=== PATIENT | male | born 1990 | race Caucasian/White ===

== ENCOUNTER 2017-10-04 00:38 | Emergency (ER) | payer SELFPAY ==
[~2017-10-04] VITALS: Ht 182.9 cm; Wt 87.1 kg
[2017-10-04 00:44] VITALS: TEMP 36.6; Ht 182.9 cm; Wt 87.1 kg
--- NOTE | 2017-10-04 01:04 | EMERGENCY ROOM VISIT NOTE ---
History Report prepared by Sim: Arjun Parnell Under the Supervision of: Dr. Darwin Garcia M.D. First contact with patient: 00:52 Chief Complaint: OTHER COMPLAINT Stated Complaint: LOSS OF FOCUS, HEADACHE History of Present Illness The patient is a 27 year old male who presents to the Emergency Room with complaints of persistent nasal congestion since yesterday. The patient states that he developed a stuffy nose yesterday. Per mother, the patient was given two Mucinex tablets and Afrin this evening. Per spouse, the patient has a bump on his head. He notes that he has been having intermittent headaches several times a week for the past 1.5 months. He has a history of sinus infections. 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 He notes that he can read the information, though he is having a difficult time focusing. He notes that he is sleeping as normal and has a normal appetite. He denies any sore throat or ear pain. He denies any underlying medical problems. He denies any back pain, abdominal pain, chest pain , or shortness of breath. He does not follow up with a PCP. He has a history of depression. He notes that he takes vitamins. He denies any alcohol use. Source of History: patient, parent, spouse/significant other Onset: since yesterday Position: nose Quality: other (congestion) Timing: other (persistent) Associated Symptoms: + headache, No sorethroat, No chest pain, No SOB, No abdominal pain, No back pain Note: He notes stuffy nose and inability to focus. He denies any ear pain. Review of Systems See HPI for pertinent positives & negatives. A total of 10 systems reviewed and were otherwise negative. Past Medical & Surgical Medical Problems: (1) Depression (2) Stomach problems Family History Diabetes mellitus FH: lung disease FHx: cancer FHx: heart disease Hypertension Social History Smoking Status: Never Smoker Smokeless Tobacco Use: No Alcohol Use: occasionally Marital Status: Housing Status: lives with significant other Occupation Status: unemployed, student Current/Historical Medications Scheduled Azithromycin (Zithromax Z-Dennis), 1 PKT PO UD Fish Oil ([place]-3), 1 CAP PO DAILY Methylprednisolone (Medrol Dosepak), 1 PKT PO UD Multivitamin (Multivitamin), 1 TAB PO DAILY Allergies Coded Allergies: Chlorpheniramine (Verified Allergy, Severe, GI SYMPTOMS, 10/04/17) Pseudoephedrine (Verified Allergy, Severe, GI SYMPTOMS, 10/04/17) Physical Exam Vital Signs Date Time Temp Pulse Resp B/P (MAP) Pulse Ox O2 Delivery O2 Flow Rate FiO2 10/04/17 02:38 80 16 121/79 98 10/04/17 00:44 36.6 81 16 121/70 97 Room Air Physical Exam GENERAL: Patient is anxious-appearing and in no acute distress. EYES: No scleral icterus, unremarkable pupils. ENT: Mucous membranes moist, nasal congestion in right nares. NECK: No masses appreciated, no meningismus, trachea is midline. RESPIRATORY: No dyspnea. Clear to auscultation and equal bilaterally. No wheeze , no rhonchi. CARDIOVASCULAR: Regular rate and rhythm. No murmurs, rubs, gallops appreciated. GASTROINTESTINAL: Abdomen soft, nontender, no peritonitis. Bowel sounds positive. No masses appreciated. BACK: No midline tenderness, no CVA tenderness EXTREMITIES: Normal motion all extremities, no cyanosis, no edema. NEUROLOGIC: Alert and oriented, no acute motor or sensory deficits, no focal weakness, cranial nerves grossly intact. SKIN: No rash, no jaundice, no diaphoresis. Medical Decision & Procedures ER Provider Diagnostic Interpretation: Radiology results and stated below per my review and radiologist interpretation: CT HEAD: No acute intracranial hemorrhage. No evidence of intracranial mass, extra-axial fluid collection, or acute territorial infarct. Visualized paraspinal sinuses and mastoid air cells are clear. Radiologist: Darwin Ortiz MD Study ready at 01:30 and initial results transmitted at 02:02 Laboratory Results 10/04/17 01:10 Red Blood Count 4.60, Mean Corpuscular Volume 90.9, Mean Corpuscular Hemoglobin 32.6, Mean Corpuscular Hemoglobin Concent 35.9, Mean Platelet Volume 10.2, Neutrophils (%) (Auto) 52.9, Lymphocytes (%) (Auto) 31.5, Monocytes (%) (Auto) 11.3, Eosinophils (%) (Auto) 3.6, Basophils (%) (Auto) 0.4, Neutrophils # (Auto ) 4.80, Lymphocytes # (Auto) 2.86, Monocytes # (Auto) 1.03, Eosinophils # (Auto ) 0.33, Basophils # (Auto) 0.04 10/04/17 01:10 Test 10/04/17 01:10 White Blood Count 9.09 K/uL (4.8-10.8) Red Blood Count 4.60 M/uL (4.7-6.1) Hemoglobin 15.0 g/dL (14.0-18.0) Hematocrit 41.8 % (42-52) Mean Corpuscular Volume 90.9 fL (80-100) Mean Corpuscular Hemoglobin 32.6 pg (25-34) Mean Corpuscular Hemoglobin Concent 35.9 g/dl (32-36) Platelet Count 230 K/uL (130-400) Mean Platelet Volume 10.2 fL (7.4-10.4) Neutrophils (%) (Auto) 52.9 % Lymphocytes (%) (Auto) 31.5 % Monocytes (%) (Auto) 11.3 % Eosinophils (%) (Auto) 3.6 % Basophils (%) (Auto) 0.4 % Neutrophils # (Auto) 4.80 K/uL (1.4-6.5) Lymphocytes # (Auto) 2.86 K/uL (1.2-3.4) Monocytes # (Auto) 1.03 K/uL (0.11-0.59) Eosinophils # (Auto) 0.33 K/uL (0-0.5) Basophils # (Auto) 0.04 K/uL (0-0.2) RDW Standard Deviation 41.3 fL (36.4-46.3) RDW Coefficient of Variation 12.4 % (11.5-14.5) Immature Granulocyte % (Auto) 0.3 % Immature Granulocyte # (Auto) 0.03 K/uL (0.00-0.02) Anion Gap 5.0 mmol/L (3-11) Est Creatinine Clear Calc Drug Dose 121.5 ml/min Estimated GFR () 117.9 Estimated GFR (Non- 101.7 BUN/Creatinine Ratio 15.9 (10-20) Calcium Level 9.0 mg/dl (8.5-10.1) Total Bilirubin 0.3 mg/dl (0.2-1) Aspartate Amino Transf (AST/SGOT) 19 U/L (15-37) Alanine Aminotransferase (ALT/SGPT) 40 U/L (12-78) Alkaline Phosphatase 103 U/L (45-117) Total Protein 7.2 gm/dl (6.4-8.2) Albumin 3.9 gm/dl (3.4-5.0) Globulin 3.3 gm/dl (2.5-4.0) Albumin/Globulin Ratio 1.2 (0.9-2) Thyroid Stimulating Hormone (TSH) 5.480 uIu/ml (0.300-4.500) Lyme Disease IgG Antibody NEG (NEG) Lyme Disease IgM Antibody NEG (NEG) Laboratory results as reviewed by me. Medications Administered Medications (Trade) Dose Ordered Sig/Leslie Route Start Time Stop Time Status Last Admin Dose Admin Azithromycin (Zithromax Tab) 500 mg NOW STAT PO 10/04/17 02:27 10/04/17 02:29 DC 10/04/17 02:35 500 MG Prednisone (PredniSONE TAB) 60 mg NOW STAT PO 10/04/17 02:27 10/04/17 02:29 DC 10/04/17 02:34 60 MG ED Course 0054: The patient was evaluated in room B9. A complete history and physical exam was performed. 0220: I reassessed the patient at this time. I discussed the results and treatment plan with the patient. I answered all pertaining questions that he had. He expressed understanding and verbalized agreement. The patient will be discharged home. Medical Decision 27 yr old male arrives for evaluation of fatigue for the last 1.5 months associated with periodic headaches and difficulty concentrating. Currently asymptomatic other then developing right maxillary sinus infection. Labs with mild TSH elevation which will need further work-up evaluation, normal CT head, no reason to need MRI/CTA at this time and lyme negative. He looks well and in no distress. Will treat with some steroids and abx for sinus infection. Discussed importance of PCP follow up and symptoms requiring RTED. Head Trauma GCS Score: 15 Medication Reconcilliation Current Medication List: was personally reviewed by me Blood Pressure Screening Patient's blood pressure: Normal blood pressure Impression Primary Impression: Fatigue Additional Impressions: Acute sinus infection Elevated TSH Scribe Attestation The scribe's documentation has been prepared under my direction and personally reviewed by me in its entirety. I confirm that the note above accurately reflects all work, treatment, procedures, and medical decision making performed by me. Departure Information Dispostion Home / Self-Care Prescriptions Methylprednisolone (MEDROL DOSEPAK) 4 Mg Dennis 1 PKT PO UD for 6 Days, #1 PKT Prov: Darwin Garcia M.D. 10/04/17 Azithromycin (ZITHROMAX Z-DENNIS) 250 Mg Tab 1 PKT PO UD, #1 PKT Prov: Darwin Garcia M.D. 10/04/17 Referrals No Doctor, Assigned (PCP) Forms HOME CARE DOCUMENTATION FORM, IMPORTANT VISIT INFORMATION, WORK / SCHOOL INSTRUCTIONS Patient Instructions ED Sinusitis Abx Tx, My [facility] Additional Instructions Please follow up with your Primary Provider for further testing and evaluation. Note that your TSH was 5.5 Problem Qualifiers
[2017-10-04 01:23] LABS: BASO % 0.4 %; BASO ABS # 0.04 K/uL (0-0.2); EOS % 3.6 %; EOS ABS # 0.33 K/uL (0-0.5); HEMATOCRIT 41.8 % (42-52); IG# 0.03 K/uL (0.00-0.02); LYMPH % 31.5 %; LYMPH ABS # 2.86 K/uL (1.2-3.4); MEAN CELL VOLUME 90.9 fL (80-100); MEAN CORPUSCULAR HEMOGLOBIN 32.6 pg (25-34); MEAN CORPUSCULAR HGB CONC 35.9 g/dl (32-36); MEAN PLATELET VOLUME 10.2 fL (7.4-10.4); MONO % 11.3 %; MONO ABS # 1.03 K/uL (0.11-0.59); NEUT % 52.9 %; PLATELET COUNT 230 K/uL (130-400); RED CELL DISTRIBUTION WIDTH CV 12.4 % (11.5-14.5); RED CELL DISTRIBUTION WIDTH SD 41.3 fL (36.4-46.3); WHITE BLOOD COUNT 9.09 K/uL (4.8-10.8)
[2017-10-04 01:48] LABS: ALBUMIN 3.9 gm/dl (3.4-5.0); CREATININE 1.02 mg/dl (0.60-1.40); POTASSIUM 3.6 mmol/L (3.5-5.1)
[2017-10-04] MEDS ORDERED: OMEG10007 PO (01:55)
[2017-10-04] MEDS ORDERED: MULT-506 PO (01:55)
[2017-10-04 01:59] LABS: TOTAL PROTEIN 7.2 gm/dl (6.4-8.2)
[2017-10-04] MEDS ORDERED: METH4PAK PO (02:26)
[2017-10-04] MEDS ORDERED: AZITTAB PO (02:26)
[2017-10-04] MEDS ORDERED: AZITHROMYCIN 250 MG TAB PO STA (02:27)
[2017-10-04 02:38] VITALS: BP 121/79; PULSE 80; O2SAT 98
--- NOTE | 2017-10-04 06:36 | DIAGNOSTIC IMAGING REPORT ---
HEAD WITHOUT CONTRAST (CT) CLINICAL HISTORY: 27 years-old Male with persistent headache x 1.5 months. Acute headache TECHNIQUE: Multiple axial CT images of the head were obtained without contrast. A dose lowering technique was utilized adhering to the principles of ALARA. CT DOSE: 614.27 mGy.cm COMPARISON: None. FINDINGS: No acute intracranial hemorrhage, midline shift, intracranial mass, hydrocephalus, territorial ischemia or abnormal extra-axial collection. The calvarium is intact. Mastoid air cells are clear. Minimal ethmoid sinus disease. Scalp, soft tissues and orbits are unremarkable. IMPRESSION: No acute intracranial abnormality. The above report was generated using voice recognition software. It may contain grammatical, syntax or spelling errors. Electronically signed by: Nikko Morton M.D. 10/04/2017 6:35 AM Dictated Date/Time: 10/04/2017 6:33 AM
--- NOTE | 2017-10-05 16:35 | Pharmacy Progress Note ---
ED Pharmacist Progress Note Date of Service: Oct 05, 2017. Prescriptions sent to the [facility]. I called in a verbal prescription (as per Dr. Garcia's note) for Zithromax Z-Dennis and a Medrol Dosepak. I also confirmed the original prescriptions were cancelled at the incorrect pharmacy.
== END 2017-10-04 02:38 | disposition home or self-care (01) ==
LOC: C.EDB 00:40
DX: R53.83 Other fatigue (principal); J01.90 Acute sinusitis, unspecified; R79.9 Abnormal finding of blood chemistry, unspecified; Z83.3 Family history of diabetes mellitus; Z82.49 Family history of ischemic heart disease and other diseases of the circulatory system; Z88.8 Allergy status to other drugs, medicaments and biological substances

== ENCOUNTER 2023-04-03 22:58 | Observation (INO) ==
--- NOTE | 2023-04-04 00:26 | Emergency Department Note ---
Impression & Plan Right lumbar radiculopathy, Lumbar disc herniation with radiculopathy, Encounter for smoking cessation counseling ED Provider Note NAME: ISAÍAS MARIE AGE: 32 SEX: M : 1990 ARRIVES VIA: Walk-In INFORMANT: Patient, ED PROVIDER(S): Gadiel Ibanez MD CHIEF COMPLAINT: Back pain MEDICAL DECISION MAKING: Patient presents due to concern for back pain that began 3 weeks prior. The patient was seen earlier today was noted to have disc bulging and some central canal stenosis. Dr. Duran's had already been made aware of the patient who had recommended follow-up with pain management as well as outpatient follow-up with the patient had returned due to concern for worsening symptoms. IV was established. The patient already had blood work completed today which does show a white count of 17 but the patient has been on steroids. Given the patient's back discomfort not amenable to at home treatments with findings on recent MRI did speak with the on-call hospital service Dr. Seymour and the patient was admitted to the medicine service. I counseled patient on smoking cessation for 3 minutes. Treatment options dis cussed and resources provided. Patient was receptive. Discussion w/ other healthcare providers: Dr. Seymour inpatient medicine Prior /Outside records reviewed: I reviewed the patient's MRI from earlier today. Lumbar spine MRI shows large central right paracentral disc extrusion at L5-S1 abuts and displaces the right S1 nerve root causing severe right lateral recess narrowing with moderate jourdan tral canal stenosis. Differential diagnosis: Musculoskeletal, disc herniation, fracture, sprain, strain, cord compression, discitis, sciatica, cauda equina, infection, renal colic, as well as other pathologies were considered. Diagnostics, as interpreted by me: ECG: None Cardiac monitoring: An order was placed for continuous cardiac monitoring. The monitor shows a rate of 95 with sinus rhythm. Patient was placed on pulse oximetry Medical decision rules: None Imaging studies: None HPI: Patient presents due to concern for worsening back pain. The patient was seen earlier today and did have an MRI which did show herniated disks as well as central canal stenosis was discussed with on-call spinal specialist Dr. Campos. Patient states that he wanted to trial outpatient therapy but that when he went home he was having significant symptoms and thus return for evaluation and treatment. The patient would like to be admitted for IV pain control. Patient's pain initially began about 3 weeks ago. No inciting event. The patient does work a desk job. Patient denies any recent falls trauma heavy lifting twisting or turning. Patient denies any bowel or bladder incontinence or retention. The patient had already been taking [id number]-ffbjglo as well as prescription medications including steroids but has not had significant improvement in symptoms. Patient has had some slight tingling. The patient's pain primarily radiates down the right leg. PAST MEDICAL HISTORY: See Below PAST SURGICAL HISTORY: See Below SOCIAL HISTORY: See Below HOME MEDICATIONS: See Below ALLERGIES: See Below VITALS: See Below PHYSICAL EXAMINATION: GENERAL: NAD, non-toxic. Laying prone. EYE EXAM: Normal conjunctiva. PERRL, no anisocoria and EOM's grossly intact w/o pain. OROPHARYNX: Moist mucus membranes, grossly normal dentition. NECK: Supple, no nuchal rigidity, no adenopathy, non-tender. No signs of meningismus. FROM of the neck with good chin to chest and neck extension. No stridor. LUNGS: Clear to auscultation. Normal chest wall mechanics. HEART: NSR, no MRG. ABDOMEN: Abdomen soft, non-tender, no masses, no rebound or guarding. BACK: No CVA TTP. SKIN: No rashes and no bruising. UPPER EXTREMITIES: Upper extremities are grossly normal. LOWER EXTREMITIES: Grossly normal, no edema. No saddle anesthesia. NEURO EXAM: A&O x3, cranial nerves II-XII grossly intact, normal speech, moves all 4 extremities. Past Med/Surg History Medical History ADHD Anxiety Surgical History No pertinent past surgical history Social History Smoking Status: Current every day smoker Tobacco Type: Cigarettes Hx Substance Use: Yes Prescribed Medications: Marijuana Preferred Language: Belarusian Feels Safe at Home: Yes Allergies Allergies Allergy/AdvReac Type Severity Reaction Status Date / Time chlorpheniramine Allergy Severe GI SYMPTOMS Verified 04/03/23 10:37 pseudoephedrine Allergy Severe GI SYMPTOMS Verified 04/03/23 10:37 Home Meds Home Medications Medication Instructions Recorded Confirmed multivitamin 1 tab PO DAILY #0 tabs 10/04/17 04/04/23 omega 3-tbg-wqo-fish oil 1,200 mg 1 cap PO QAM #0 caps 10/04/17 04/04/23 (144 mg-216 mg) capsule (Fish Oil) cyclobenzaprine 10 mg tablet 10 mg PO TID PRN Muscle Spasm 04/04/23 04/04/23 trazodone 50 mg tablet 50 mg PO HS PRN Sleep 04/04/23 04/04/23 Previous Rx's Medication Instructions Recorded oxycodone 5 mg tablet 5 - 10 mg PO Q4H PRN pain #20 tabs 04/03/23 prednisone 20 mg tablet 20 mg PO DAILY #18 tabs 04/03/23 Results & Data (ED) Vital Signs Vital Signs - 24 hr 04/03/23 23:09 Temperature 36.8 C Temperature Source Temporal Artery Scan Pulse Rate 103 H Respiratory Rate 18 Respiratory Effort / Characteristics Non-Labored Spontaneous Respiratory Depth Normal Respiratory Pattern Regular Blood Pressure 123/76 Blood Pressure Mean 91 Blood Pressure Position Sitting Pulse Oximetry 96 Oxygen Delivery Method Room Air Sepsis Recent Fever Within 48 Hours No Sepsis New/Unexplained Change in Mental Status N/A Sepsis Action Taken by Nursing No Action Required Home Medications Current Medication List: was personally reviewed by me Laboratory Data Attestation: I reviewed the patient's lab results. Discharge Plan Visit Data Chief Complaint: Back Injury/Pain Stated Complaint: BACK PAIN ED Provider: Gadiel Ibanez Discharge Problem: Right lumbar radiculopathy, Lumbar disc herniation with radiculopathy, Encounter for smoking cessation counseling Forms Stand Alone Forms: My [facility] Prescriptions Prescriptions: No Action multivitamin Tablet 1 tab PO DAILY Qty: 0 omega 2-xog-lyz-fish oil [Fish Oil] 1,200 (144-216) mg Capsule 1 cap PO QAM Qty: 0 cyclobenzaprine 10 mg tablet 10 mg PO TID PRN (Reason: Muscle Spasm) trazodone 50 mg tablet 50 mg PO HS PRN (Reason: Sleep) prednisone 20 mg tablet 20 mg PO DAILY Qty: 18 0RF Rx Instructions: 3 tablets once daily x 3 days, 2 tablets once daily x 3 days, one tablet once daily x 3 days. oxycodone 5 mg tablet 5 - 10 mg PO Q4H PRN (Reason: pain) Qty: 20 0RF Referrals Referrals: Ofelia Allred [id number] [Primary Care Provider] -
[2023-04-04] MEDS ORDERED: MoRPHine SULFATE 4 MG/ML 1 ML CARP\\VIAL IV STA (00:38)
[2023-04-04] MEDS ORDERED: NSS + 20MEQ KCL 20 MEQ/1,000 ML BAG IV ONE (00:40)
[2023-04-04] MEDS ORDERED: oxyCODONE HCL IR 5 MG TAB (IMMEDIATE RELEASE) PO PRN (00:41)
[2023-04-04] MEDS ORDERED: ACETAMINOPHEN 325 MG TAB PO PRN (00:41)
[2023-04-04] MEDS ORDERED: KETOROLAC TROMETHAMINE 15 MG/ML VIAL IV ONE (00:57)
[2023-04-04] MEDS ORDERED: NICOTINE 14 MG/24 HR PATCH TD SCH (01:00)
[2023-04-04] MEDS ORDERED: MoRPHine SULFATE 4 MG/ML 1 ML CARP\\VIAL IV PRN (01:02)
[2023-04-04] MEDS ORDERED: PROMETHAZINE HCL 6.25 MG in SODIUM CHLORIDE 0.9% 50 ML IV PRN (01:02)
[2023-04-04] MEDS ORDERED: LORazepam 0.5 MG TAB PO PRN (01:02)
[2023-04-04] MEDS ORDERED: MELATONIN 3 MG TAB PO PRN (01:31)
--- NOTE | 2023-04-04 02:04 | Discharge Summary ---
Date of Service April 04, 2023 Admission HPI Per Admitting Provider History obtained from patient, family, and records. Medical history significant for ADHD, ongoing tobacco abuse. 3 weeks ago, patient noted achy low back pain symptoms radiating to right lower extremity while dealing with a respiratory tract infection. Patient thinks he was coughing too much and too hard. Respiratory tract infection improved with antibiotics. Low back pain worse with motion. No fever, no chills, no chest pain, no SOB, no incontinence symptoms. Patient seen at the ER 9 days ago for worsening symptoms. No acute fracture or subluxation on plain LSXR. Patient discharged home on steroid course and narcotic medications. Patient returned to ER yesterday due to worsening symptoms. Lumbar MRI showed 1. Large central/right paracentral disc extrusion at L5-S1 abuts and displaces the right S1 nerve root causing severe right lateral recess narrowing with moderate central canal stenosis. 2. Additional discogenic degeneration at L4-L5 as above. 3. Distended urinary bladder with wall thickening. Correlate with urinalysis. WBC of 17 on blood work done at the ER. Admission offered by ER provider but patient declined. Patient returned to ER last night for intractable discomfort. Medical Historyas above Surgical History : Tonsillectomy Family History : DM Personal/Social history : Half pack daily, occasional EtOH intake, office work Discharge Data Consultations 04/04/23 00:38 ED Decision to Admit Stat 04/04/23 01:02 Consult Orthopedic Spine Surgery Routine Hospital Course (1) Lumbar disc herniation with radiculopathy: Intractable back pain Rule out infection given leukocytosis from ER visit yesterday and mild tachycardia upon arrival at the ER tonight ADHD, currently not on maintenance medications ongoing tobacco abuse GMF CS, check lactic acid, check procalcitonin Analgesia Orthopedic spine consult Re: Lumbar radiculopathy DVT prophylaxis. Nicotine patch SCDs Re: Possible procedure Full code (Preceding documentation as per admitting provider.) 04/04, 2AM Made aware by RN of patient request to leave hospital to AGAINST MEDICAL ADVICE. Patient not comfortable staying due to need for IV access. Patient intent on departing hospital AGAINST MEDICAL ADVICE despite explanations provided and citation of risks/possible consequences arising from decision to leave AMA which include hospital bill/medical insurance implications, infection, disability, and as an extreme end result. Patient signed AMA form. Total time to prepare this discharge summary was less than 10 minutes. Text document was generated using [employer] voice recognition software. It may contain grammatical or spelling errors. Kindly contact undersigned for clarification of any documentation item in question.
--- NOTE | 2023-04-04 06:24 | History & Physical Report ---
Date of Service April 04, 2023 Assessment & Plan (1) Lumbar disc herniation with radiculopathy: Plan: Intractable back pain Rule out infection given leukocytosis from ER visit yesterday and mild tachycardia upon arrival at the ER tonight ADHD, currently not on maintenance medications ongoing tobacco abuse GMF CS, check lactic acid, check procalcitonin Analgesia Orthopedic spine consult Re: Lumbar radiculopathy DVT prophylaxis. Nicotine patch SCDs Re: Possible procedure Full code Text document was generated using [employer] voice recognition software. It may contain grammatical or spelling errors. Kindly contact undersigned for clarification of any documentation item in question. History of Present Illness Chief Complaint: Intractable back pain Primary Care Provider: Ofelia Allred History obtained from patient, family, and records. Medical history significant for ADHD, ongoing tobacco abuse. 3 weeks ago, patient noted achy low back pain symptoms radiating to right lower extremity while dealing with a respiratory tract infection. Patient thinks he was coughing too much and too hard. Respiratory tract infection improved with antibiotics. Low back pain worse with motion. No fever, no chills, no chest pain, no SOB, no incontinence symptoms. Patient seen at the ER 9 days ago for worsening symptoms. No acute fracture or subluxation on plain LSXR. Patient discharged home on steroid course and narcotic medications. Patient returned to ER yesterday due to worsening symptoms. Lumbar MRI showed 1. Large central/right paracentral disc extrusion at L5-S1 abuts and displaces the right S1 nerve root causing severe right lateral recess narrowing with m oderate central canal stenosis. 2. Additional discogenic degeneration at L4-L5 as above. 3. Distended urinary bladder with wall thickening. Correlate with urinalysis. WBC of 17 on blood work done at the ER. Admission offered by ER provider but patient declined. Patient returned to ER last night for intractable discomfort. Medical History as above Surgical History : Tonsillectomy Family History : DM Personal/Social history : Half pack daily, occasional EtOH intake, office work Allergies Allergy/AdvReac Type Severity Reaction Status Date / Time chlorpheniramine Allergy Severe GI SYMPTOMS Verified 04/03/23 10:37 pseudoephedrine Allergy Severe GI SYMPTOMS Verified 04/03/23 10:37 Home Medications Medication Instructions Recorded Confirmed Type multivitamin 1 tab PO DAILY #0 tabs 10/04/17 04/04/23 History omega 1-iqn-uor-fish oil 1,200 mg 1 cap PO QAM #0 caps 10/04/17 04/04/23 History (144 mg-216 mg) capsule (Fish Oil) oxycodone 5 mg tablet 5 - 10 mg PO Q4H PRN pain #20 tabs 04/03/23 04/04/23 Rx prednisone 20 mg tablet 20 mg PO DAILY #18 tabs 04/03/23 04/04/23 Rx cyclobenzaprine 10 mg tablet 10 mg PO TID PRN Muscle Spasm 04/04/23 04/04/23 History trazodone 50 mg tablet 50 mg PO HS PRN Sleep 04/04/23 04/04/23 History Past Med/Surg History Medical History ADHD Anxiety Surgical History No pertinent past surgical history Social History Smoking Status: Current every day smoker Tobacco Type: Cigarettes Hx Substance Use: Yes Prescribed Medications: Marijuana Preferred Language: Qatari Feels Safe at Home: Yes Review of Systems Review of Systems: As per HPI, all other systems reviewed and negative Physical Exam Physical Exam: GENERAL: Slightly uncomfortable, slightly anxious, prone position, no respiratory distress SKIN: Normal color, warm HEENT: [place] palpebral conjunctivae, no ptosis, dry buccal mucosa NECK : Supple, no tenderness CHEST : Decreased breath sounds, no tenderness HEART : Could not be done due to patient's prone position ABDOMEN: Could not be done to patient's prone position BACK : Low back tenderness EXTREMITIES : No LE swelling/tenderness, no other conspicuous deformities noted NEUROLOGIC : Coherent, no facial asymmetry, no other gross focality Results & Data Results & Data Vital Signs (Past 12 Hours) Vital Signs Temp Pulse Resp BP Pulse Ox O2 Del Method 04/03/23 23:09 36.8 C 103 H 18 123/76 96 Room Air
[2023-04-04] MEDS ORDERED: LIDOCAINE 5% 1 PATCH TD SCH (09:00)
== END 2023-04-04 02:12 | disposition left against medical advice (07) ==
LOC: ED 22:58 → INTOOBSV 04-04 01:02 → 3W 04-04 02:00